=== PATIENT | female | born 1980 | race Two or more races ===

== ENCOUNTER 2025-02-10 02:09 | Emergency (ER) | payer OTHER ==
[~2025-02-10] VITALS: Ht 157.5 cm; Wt 81.6 kg
[2025-02-10] MEDS ORDERED: KETOROLAC TROMETHAMINE INJ 30 MG/ML VIAL ONE (03:09)
[2025-02-10] MEDS ORDERED: PROCHLORPERAZINE EDISYLATE 10 MG/2 ML VIAL ONE (03:09)
[2025-02-10] MEDS: IV NS 0.9% 1,000 ML BAG IV ONE (03:17)
[2025-02-10] MEDS: PROCHLORPERAZINE EDISYLATE 10 MG/2 ML VIAL IVP ONE (03:18)
[2025-02-10] MEDS: KETOROLAC TROMETHAMINE 15 MG/ML VIAL IV ONE (03:18)
[2025-02-10 03:24] LABS: PLATELET COUNT (AUTO) 265 K/uL (150-450); RED BLOOD CELL COUNT(AUTO) 4.57 MIL/uL (4.0-5.2); RED CELL DISTRIBUTION WIDTH 21.2 % (11.5-15.0); WHITE BLOOD COUNT (AUTO) 11.5 K/uL (4.3-11.0)
[2025-02-10] MEDS ORDERED: IV NS 0.9% 250 ML IV ONE (03:30)
[2025-02-10] MEDS ORDERED: CT SWABBABLE VALVE TRANS SET 1 EA INFUS.SET MC ONE (03:30)
[2025-02-10] MEDS ORDERED: IOHEXOL-300 100 ML VIAL IV ONE (03:30)
[2025-02-10 03:33] LABS: APPEARANCE,URINE CLEAR (CLEAR); BLOOD, URINE 3+ Ery/uL (NEGATIVE); LEUKOCYTE ESTERASE ,URINE NEGATIVE (NEGATIVE); NITRITE, URINE POSITIVE (NEGATIVE); UGLUCOSE NEGATIVE (NEGATIVE)
[2025-02-10 03:34] LABS: PREGNANCY TEST URINE QUAL NEGATIVE (NEGATIVE)
[2025-02-10 03:35] LABS: CALCIUM, SERUM 7.9 mg/dL (8.5-10.1); CREATININE 0.7 mg/dL (0.6-1.3); SODIUM SERUM 139.0 mmol/L (136-145); UREA NITROGEN, BLOOD 9.0 mg/dL (7-18)
[2025-02-10 03:42] LABS: ASPARTATE AMINOTRANSFERASE 15.0 U/L (15-37); TOTAL PROTEIN, SERUM 7.7 g/dL (6.4-8.2)
[2025-02-10 03:50] LABS: ADD URINE CULTURE YES
[2025-02-10] MEDS ORDERED: CEFP200T14 PO (04:33)
[2025-02-10] MEDS ORDERED: PROC-11 PO (04:35)
[2025-02-10] MEDS ORDERED: KETO10TA2 PO (04:35)
[2025-02-10 05:39] VITALS: BP 132/76; TEMP 98.7; O2SAT 97
== END 2025-02-10 05:39 | disposition home or self-care (01) ==
LOC: ER 02:12 → EDBD 02:12 → ER 05:39
DX: N39.0 Urinary tract infection, site not specified (principal); J18.9 Pneumonia, unspecified organism; I10 Essential (primary) hypertension; R51.9 Headache, unspecified; R31.9 Hematuria, unspecified; N32.89 Other specified disorders of bladder; Z86.32 Personal history of gestational diabetes
CPT/HCPCS: 99285; 74177; 96374; 96361; 96375; 85025; 80048; 87086; 83690; 80076; 84703; 81001; 36415; J1885; J0780; J7050; Q9967

== ENCOUNTER 2025-02-14 02:47 | Emergency (ER) | payer OTHER ==
[~2025-02-14 02:47] MED LIST: CEFP200T14 PO; KETO10TA2 PO; PROC-11 PO
== END 2025-02-14 03:32 | disposition left against medical advice (07) ==
LOC: ER 02:50
DX: R50.9 Fever, unspecified (principal); Z53.21 Procedure and treatment not carried out due to patient leaving prior to being seen by health care provider